=== PATIENT | female | born 1990 | race Two or more races ===

== ENCOUNTER → 2020-12-16 | Outpatient (CLI) | payer OTHER ==
--- NOTE | 2020-12-16 13:04 | CARD ---
MR#: [id number] Date of Study: 12/16/2020 Ordering Physician: Efrain BROOKE, Referring Physician: Efrain BROOKE, Tech: Leora Semajdipak, [facility] APPROVED REPORT EXAM: Two-dimensional and M-mode echocardiogram with Doppler and color Doppler. Other Information Quality : AverageHR: 75bpm INDICATION Murmur RISK FACTORS Smoking 2D DIMENSIONS RVDd3.0 (2.9-3.5cm)Left Atrium(2D)2.9 (1.6-4.0cm) IVSd0.6 (0.7-1.1cm)Aortic Root(2D)2.6 (2.0-3.7cm) LVDd5.3 (3.9-5.9cm)LVOT Diameter2.0 (1.8-2.4cm) PWd0.8 (0.7-1.1cm)LVDs4.0 (2.5-4.0cm) FS (%) 24.6 %SV65.0 ml Aortic Valve AoV Peak Zay.165.1cm/sAoV VTI31.5cm AO Peak GR.10.9mmHgLVOT Peak Zay.104.9cm/s LVOT VTI 23.20cmAO Mean GR.6mmHg REGINALDO (VMAX)1.43wc5AJD (VTI)2.32cm2 Mitral Valve MV E Swgvszmm54.9cm/sMV DECEL SKNU429kg MV A Mriwhjvg22.7cm/sMV E Mean Gr.2mmHg MV ROH38ncS/A Ratio1.3 MVA (PHT)4.26cm2 TDI E/Lateral E'6.0E/Medial E'9.2 Pulmonary Valve PV Peak Hgldbvpi34.9cm/sPV Peak Grad.3mmHg Tricuspid Valve TR P. Tadfafiu845kf/sRAP [id number] TR Peak Gr.46isAlUGFN69omQr Pulmonary Vein S1 Gwnqacbi24.2cm/sD2 Fyuifkcp51.8cm/s PVa iaxymroy076flid LEFT VENTRICLE The left ventricle is normal size. There is normal left ventricular wall thickness. The left ventricu lar systolic function is normal. The Ejection Fraction is 55-60%. There is normal LV segmental wall m otion. The left ventricular diastolic function and filling is normal for age. RIGHT VENTRICLE The right ventricle is normal size. There is normal right ventricular wall thickness. The right ventr icular systolic function is normal. ATRIA The left atrium size is normal. The right atrium size is normal. The interatrial septum is intact wit h no evidence for an atrial septal defect or patent foramen ovale as noted on 2-D or Doppler imaging. AORTIC VALVE The aortic valve is normal in structure and function. Doppler and Color Flow revealed no significant aortic regurgitation. There is no significant aortic valvular stenosis. Calculated aortic valve area is 2.46 cm2 with maximum pressure gradient of 13 mmHg and mean pressure gradient of 6 mmHg. MITRAL VALVE The mitral valve is normal in structure and function. There is no evidence of mitral valve prolapse. There is no mitral valve stenosis. Doppler and Color-flow revealed trace mitral regurgitation. TRICUSPID VALVE The tricuspid valve is normal in structure and function. Doppler and Color Flow revealed trace tricus pid regurgitation with an estimated PAP of 26 mmHg. There is no tricuspid valve stenosis. PULMONIC VALVE The pulmonary valve is normal in structure and function. Doppler and Color Flow revealed trace pulmon ic valvular regurgitation. GREAT VESSELS The aortic root is normal in size. The IVC is normal in size and collapses >50% with inspiration. PERICARDIAL EFFUSION There is no evidence of significant pericardial effusion. Critical Notification Critical Value: No <Conclusion> The left ventricular systolic function is normal. The Ejection Fraction is 55-60%. There is normal LV segmental wall motion. Trace mitral regurgitation. Trace tricuspid regurgitation with an estimated PAP of 26 mmHg. There is no evidence of significant pericardial effusion. Signed by : Beto Rosenthal, Electronically Approved : 12/16/2020 13:04:25
== END ==
LOC: ECHO 10:44
PROVIDERS: ATTEND Family Medicine
DX: R01.1 Cardiac murmur, unspecified (principal)
CPT/HCPCS: 93306